=== PATIENT | female | born 1975 | race American Indian/Alaskan Native ===

== ENCOUNTER 2020-12-27 20:25 | Emergency (ER) | payer OTHER ==
--- NOTE | 2020-12-27 21:42 | Emergency Department Report ---
ED General Adult HPI - General Chief complaint: High BP Stated complaint: HIGH BLOOD PRESSURE Time Seen by Provider: 12/27/20 21:26 Source: patient Mode of arrival: Ambulatory Limitations: No Limitations - History of Present Illness Initial comments: 45-year-old female presents to ED for elevated blood pressure. Patient states she ran out of her blood pressure medication approximately 1 week ago. Patient states she was unable to get an in-office appointment with her physician. Patient states she began taking her blood pressure readings at home because she knew that she was out of blood pressure medication. Patient reports when her readings became high, systolic BP of 250 at home, she did a telemedicine appointment. The telemedicine physician advised patient to come to the ER and had blood work done because her blood pressure was so high. Patient denies any headache, dizziness, nausea or vomiting, chest pain, shortness of breath. -: week(s) (1) Consistency: constant Improves with: medication Worsens with: none Associated Symptoms: denies other symptoms. denies: chest pain, headaches, nausea/vomiting, shortness of breath - Related Data Previous Rx's Medication Instructions Recorded Last Taken Type Metoprolol Xl [Metoprolol 100 mg PO QDAY #30 tablet 12/27/20 Unknown Rx SUCCINATE ER TAB] amLODIPine 10 mg PO DAILY #30 tab 12/27/20 Unknown Rx hydroCHLOROthiazide [HCTZ] 25 mg PO QDAY #30 tablet 12/27/20 Unknown Rx lisinopriL [Zestril TAB] 40 mg PO QDAY #30 tablet 12/27/20 Unknown Rx ED Review of Systems ROS: Stated complaint: HIGH BLOOD PRESSURE Other details as noted in HPI Comment: All other systems reviewed and negative Respiratory: denies: shortness of breath Cardiovascular: denies: chest pain Gastrointestinal: denies: nausea, vomiting Neurological: denies: headache, vertigo ED Past Medical Hx - Past Medical History Hx Hypertension: Yes Hx CVA: Yes (TIA 2007) Additional medical history: Heart Murmur - Surgical History Additional Surgical History: hysterectomy - Social History Smoking Status: Current Some Day Smoker Substance Use Type: Alcohol - Medications Home Medications: Home Medications Medication Instructions Recorded Confirmed Last Taken Type Metoprolol Xl [Metoprolol 100 mg PO QDAY #30 tablet 12/27/20 Unknown Rx SUCCINATE ER TAB] amLODIPine 10 mg PO DAILY #30 tab 12/27/20 Unknown Rx hydroCHLOROthiazide [HCTZ] 25 mg PO QDAY #30 tablet 12/27/20 Unknown Rx lisinopriL [Zestril TAB] 40 mg PO QDAY #30 tablet 12/27/20 Unknown Rx ED Physical Exam - General Limitations: No Limitations General appearance: alert, in no apparent distress - Head Head exam: Present: atraumatic, normocephalic - Eye Eye exam: Present: normal appearance, EOMI - ENT ENT exam: Present: mucous membranes moist - Neck Neck exam: Present: normal inspection, full ROM - Respiratory Respiratory exam: Present: normal lung sounds bilaterally. Absent: respiratory distress - Cardiovascular Cardiovascular Exam: Present: regular rate, normal rhythm - GI/Abdominal GI/Abdominal exam: Present: soft. Absent: distended, tenderness - Extremities Exam Extremities exam: Present: normal inspection - Neurological Exam Neurological exam: Present: alert, oriented X3, CN II-XII intact. Absent: motor sensory deficit - Psychiatric Psychiatric exam: Present: normal affect, normal mood - Skin Skin exam: Present: warm, dry, intact, normal color ED Course Vital Signs 12/27/20 12/27/20 12/27/20 20:28 20:38 21:43 Temperature 99.1 F 99.1 F Pulse Rate 94 H 101 H 88 Respiratory 20 18 18 Rate Blood Pressure 220/133 Blood Pressure 220/133 208/119 [Right] O2 Sat by Pulse 99 98 99 Oximetry 12/27/20 12/27/20 22:33 23:35 Temperature Pulse Rate 80 80 Respiratory 18 Rate Blood Pressure 220/114 Blood Pressure 198/119 [Right] O2 Sat by Pulse 96 Oximetry ED Medical Decision Making - Lab Data Result diagrams: 12/27/20 21:51 12/27/20 21:51 - Medical Decision Making 45-year-old female with history of hypertension presents to ED with elevated blood pressure secondary to running out of her BP meds. Patient unable to get in with her PCP. Following a telemedicine consult, patient was instructed to present to the ED for BP management. Patient denies any headache, dizziness, c hest pain. Labs are normal, including renal function. Patient given clonidine here in the ED with some improvement in BP. Blood pressure medications have been refilled. Patient advised to follow-up with her PCP. Return precautions given. - Differential Diagnosis Uncontrolled hypertension, renal insufficiency Critical care attestation.: If time is entered above; I have spent that time in minutes in the direct care of this critically ill patient, excluding procedure time. ED Disposition Clinical Impression: Uncontrolled hypertension Disposition: DC-01 TO HOME OR SELFCARE Is pt being admited?: No Condition: Stable Instructions: Hypertension, Adult, [id number], Preventing Hypertension, Hyper tension (ED) Prescriptions: amLODIPine 10 mg PO DAILY #30 tab hydroCHLOROthiazide [HCTZ] 25 mg PO QDAY #30 tablet Metoprolol Xl [Metoprolol SUCCINATE ER TAB] 100 mg PO QDAY #30 tablet lisinopriL [Zestril TAB] 40 mg PO QDAY #30 tablet Referrals: PRIMARY CAREMD [Referring] - 3-5 Days MILI TOTH MD [Staff Physician] - 3-5 Days Time of Disposition: 23:23
[2020-12-27] MEDS ORDERED: cloNIDine 0.1 MG TAB PO ONE (22:17)
[2020-12-27 22:36] LABS: Basophils % (Auto) 0.4 % (0.0-1.8); Eosinophils % (Auto) 0.6 % (0.0-4.3); Hematocrit 39.3 % (30.3-42.9); Hemoglobin 13.1 gm/dl (10.1-14.3); Lymphocytes # (Auto) 1.6 K/mm3 (1.2-5.4); Lymphocytes % (Auto) 23.4 % (13.4-35.0); Mean Corpuscular HGB Conc 33 % (30-34); Mean Corpuscular Volume 87 fl (79-97); Monocytes # (Auto) 0.8 K/mm3 (0.0-0.8); Monocytes % (Auto) 11.8 % (0.0-7.3); Platelet Count 226 K/mm3 (140-440); Red Blood Count 4.54 M/mm3 (3.65-5.03); Red Cell Distribution Width 14.4 % (13.2-15.2)
[2020-12-27 22:56] LABS: BUN/Creatinine Ratio 15; Blood Urea Nitrogen 15 mg/dL (7-17); Calcium 9.3 mg/dL (8.4-10.2); Hemolysis Index 16
[2020-12-27 23:36] VITALS: BP 198/119
== END 2020-12-27 23:35 | disposition home or self-care (01) ==
LOC: ED 20:25
DX: I10 Essential (primary) hypertension (principal); F17.200 Nicotine dependence, unspecified, uncomplicated; Z90.710 Acquired absence of both cervix and uterus; Z79.899 Other long term (current) drug therapy
CPT/HCPCS: 36415; 80048; 85025; 99283